=== PATIENT | male | born 1935 | race Caucasian/White ===

== ENCOUNTER 2017-05-17 11:04 | Emergency (ER) | payer MEDICARE, OTHER ==
[~2017-05-17] VITALS: Ht 170.2 cm; Wt 86.4 kg
[~2017-05-17 11:04] MED LIST: /WARF25TA OR; ACET65TA OR; ASPI325T; BENA40TA2 OR; BYSTOLIC OR; DILT180C7 OR; HYDROCHLOROTHIAZIDE 12.5 MG OR; LEVOTHYROXINE 0.05 MG OR; LUTEIN 20 MG OR; MULTIVIT OR; PERC5TAB8 OR; [UNRECOGNIZED DRUG - OTHER]; [UNRECOGNIZED DRUG - OTHER]
[2017-05-17] MEDS ORDERED: ASPIRIN 81 MG CHEW TABLET PO ONE (11:45)
[2017-05-17 12:19] LABS: ANION GAP 10 MEQ/L (8-16); BLOOD UREA NITROGEN 14 MG/DL (7-18); CALCIUM LEVEL 8.9 MG/DL (8.8-10.2); CARBON DIOXIDE LEVEL 27 MEQ/L (21-32); CHLORIDE LEVEL 107 MEQ/L (98-107); CREATININE FOR GFR 1.32 MG/DL (0.70-1.30); GLOMERULAR FILTRATION RATE 55.3 (>35); GLUCOSE, FASTING 123 MG/DL (83-110); POTASSIUM SERUM 4.2 MEQ/L (3.5-5.1); SODIUM LEVEL 144 MEQ/L (136-145)
[2017-05-17 12:23] LABS: BASO % 0.9 % (0.0-1.0); EOS # 0.1 K/mm3 (0.0-0.50); EOS % 1.9 % (0.0-3.0); LARGE UNSTAINED CELL # 0.2 K/mm3 (0.0-0.4); LYMPH # 1.5 K/mm3 (1.5-4.5); LYMPH % 24.8 % (24.0-44.0); MEAN CORPUSCULAR HEMOGLOBIN 30.5 pg (27.0-33.0); MEAN CORPUSCULAR HGB CONC 33.9 g/dl (32.0-36.5); MONO # 0.4 K/mm3 (0.0-0.8); NEUTROPHILS # 3.7 K/mm3 (1.8-7.7); NEUTROPHILS % 62.3 % (36.0-66.0); PLATELET COUNT, AUTOMATED 194 k/mm3 (150-450); RED CELL DISTRIBUTION WIDTH 13.1 % (11.5-14.5); WHITE BLOOD COUNT 5.9 K/mm3 (4.0-10.0)
--- NOTE | 2017-05-17 12:24 | REP ---
PORTABLE CHEST X-RAY: Sitting AP view. HISTORY: Chest pain. COMPARISON STUDY: January 26, 2017. FINDINGS: The lungs are symmetrically aerated and clear. Heart is not enlarged. EKG electrodes are seen. The aorta is tortuous and calcific. There is some linear fibrosis in the right base. IMPRESSION: No active disease. Signed by Jens Morales MD 05/17/2017 02:38 P
[2017-05-17 16:17] VITALS: BP 186/77
--- NOTE | 2017-05-18 08:11 | ECGEPIP ---
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
--- NOTE | 2017-05-18 08:15 | ECGEPIP ---
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
== END 2017-05-17 16:18 | disposition home or self-care (01) ==
LOC: M ED 11:04
DX: R07.89 Other chest pain (principal); I48.91 Unspecified atrial fibrillation; I10 Essential (primary) hypertension; E78.5 Hyperlipidemia, unspecified; J44.9 Chronic obstructive pulmonary disease, unspecified; Z87.891 Personal history of nicotine dependence; Z79.82 Long term (current) use of aspirin; Z79.899 Other long term (current) drug therapy; Z88.0 Allergy status to penicillin

== ENCOUNTER → 2019-02-14 | Outpatient (CLI) | payer MEDICARE, OTHER ==
[~2019-02-14] MED LIST changes: -/WARF25TA OR; +COUM1TAB18 OR
--- NOTE | 2019-02-14 15:53 | REP ---
CT chest without contrast: History: Chronic cough. Comparison chest CT study is from September 28, 2011. CT findings: Preliminary digital cigar wrapper tender automatic radiograph shows slight elevation of the right hemidiaphragm, unchanged. The aorta is tortuous. 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 This is an incidental finding which is usually asymptomatic, but can occasionally present with chronic cough, stridor, dyspnea, or recurrent infection. It is unchanged from the September 28, [address] study when it was thought to reflect pneumomediastinum. It measures 1.1 cm in greatest AP dimension. The trachea and bronchial tree are otherwise unremarkable. No mediastinal mass or adenopathy is observed. There is fairly prominent vascular calcification again noted, unchanged. No pleural or pericardial effusion is seen. There is linear fibrosis in the right middle lobe, which is slightly more prominent but not new when compared with the 2012 study. There is mild linear plate-like atelectasis in the right lower lobe. No infiltrate is seen. No pulmonary mass lesion or significant nodule is appreciated. No infiltrate is seen. There are small calcific gallstones in the dependent portion of the gallbladder. No adrenal lesion is seen. The visualized upper abdominal structures are otherwise unremarkable. There is a tiny cortical cyst in the right kidney peripherally. 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 Cholelithiasis. Otherwise no acute finding. Fairly prominent vascular calcification. Electronically Signed by Jens Morales MD 02/14/2019 04:05 P
== END ==
LOC: M RAD 14:53
PROVIDERS: ATTEND Family Medicine
DX: R05 Cough (principal); J39.8 Other specified diseases of upper respiratory tract; K80.00 Calculus of gallbladder with acute cholecystitis without obstruction; N28.1 Cyst of kidney, acquired; J84.10 Pulmonary fibrosis, unspecified; J98.11 Atelectasis

== ENCOUNTER → 2020-11-25 | Outpatient (CLI) | payer MEDICARE, OTHER ==
--- NOTE | 2020-11-25 15:30 | REPPI ---
INDICATION: R05 COUGH. COMPARISON: Comparison chest x-ray 29 July 2018. TECHNIQUE: Two views.. FINDINGS: The lungs are well inflated and free of infiltrate. The pleural angles are sharp. The heart size is normal. Pulmonary vasculature is not increased. No significant bony abnormality is seen. The thoracic aorta is tortuous as before and somewhat calcific. IMPRESSION: No active disease.. <Electronically signed by Luis Morales > 11/25/20 [id number]
== END ==
LOC: M PLAIMG 14:28
PROVIDERS: ATTEND Family Medicine
DX: R05 Cough (principal)

== ENCOUNTER → 2021-10-10 | Outpatient (CLI) | payer MEDICARE, OTHER | LOC: M WUC 13:51 | PROVIDERS: ATTEND Physician Assistant | DX: M25.511 Pain in right shoulder (principal) ==

== ENCOUNTER 2024-09-04 14:05 | Emergency (ER) | payer MEDICARE, OTHER ==
[~2024-09-04] VITALS: Ht 170.2 cm; Wt 72.6 kg
[2024-09-04 14:56] LABS: BASO # 0.1 10^3/uL (0.0-0.2); BASO % 0.9 % (0.0-1.0); EOS # 0.1 10^3/uL (0.0-0.5); EOS % 1.7 % (0.0-3.0); HEMATOCRIT 41.8 % (42.0-52.0); LYMPH # 1.9 10^3/uL (1.5-5.0); LYMPH % 27.1 % (24.0-44.0); MEAN CORPUSCULAR HEMOGLOBIN 30.1 pg (27.0-33.0); MEAN CORPUSCULAR HGB CONC 33.5 g/dl (32.0-36.5); MEAN CORPUSCULAR VOLUME 89.9 fl (80.0-96.0); MONO # 0.6 10^3/uL (0.0-0.8); MONO % 8.6 % (2.0-8.0); NEUTROPHILS # 4.3 10^3/uL (1.5-8.5); NEUTROPHILS % 61.6 % (36.0-66.0); PLATELET COUNT, AUTOMATED 191 10^3/uL (150-450); RED BLOOD COUNT 4.65 10^6/uL (4.30-6.10)
[2024-09-04 15:12] LABS: CALCIUM LEVEL 10.2 MG/DL (8.3-10.6); CREATININE FOR GFR 1.49 MG/DL (0.70-1.30); GLOMERULAR FILTRATION RATE 47.3 (>35); POTASSIUM SERUM 4.3 MMOL/L (3.5-5.1)
[2024-09-04] MEDS: NS 500 ML IV ONE (15:14)
[2024-09-04 15:36] LABS: INR 1.07; PARTIAL THROMBOPLASTIN TIME 36.2 SECONDS (24.8-34.2); PROTHROMBIN TIME 14.2 SECONDS (12.5-14.5)
[2024-09-04 15:49] LABS: MAGNESIUM LEVEL 1.8 MG/DL (1.8-2.4)
[2024-09-04 15:54] LABS: FREE T4 1.2 NG/DL (0.89-1.76); THYROID STIMULATING HORMONE 2.16 uIU/ML (0.55-4.78)
[2024-09-04 17:49] VITALS: BP 162/73; TEMP 97.3; O2SAT 94
== END 2024-09-04 18:21 | disposition home or self-care (01) ==
LOC: EDBD 14:05 → M ED 14:05
DX: E86.0 Dehydration (principal); M50.30 Other cervical disc degeneration, unspecified cervical region; I10 Essential (primary) hypertension; E78.5 Hyperlipidemia, unspecified; Z88.0 Allergy status to penicillin; Z79.01 Long term (current) use of anticoagulants; Z79.82 Long term (current) use of aspirin; Z79.899 Other long term (current) drug therapy; Z86.79 Personal history of other diseases of the circulatory system

== ENCOUNTER 2024-09-06 12:55 | Observation (INO) | payer MEDICARE, OTHER ==
[~2024-09-06] VITALS: Ht 170.2 cm; Wt 71.5 kg
[2024-09-06 13:48] LABS: BASO # 0.1 10^3/uL (0.0-0.2); BASO % 1.1 % (0.0-1.0); EOS # 0.2 10^3/uL (0.0-0.5); EOS % 3.7 % (0.0-3.0); HEMATOCRIT 43.3 % (42.0-52.0); HEMOGLOBIN 14.2 g/dl (13.5-17.5); LYMPH # 1.8 10^3/uL (1.5-5.0); MEAN CORPUSCULAR HEMOGLOBIN 29.6 pg (27.0-33.0); MEAN CORPUSCULAR HGB CONC 32.8 g/dl (32.0-36.5); MEAN CORPUSCULAR VOLUME 90.2 fl (80.0-96.0); MONO # 0.4 10^3/uL (0.0-0.8); MONO % 8.2 % (2.0-8.0); NEUTROPHILS # 2.8 10^3/uL (1.5-8.5); NEUTROPHILS % 52.8 % (36.0-66.0); PLATELET COUNT, AUTOMATED 175 10^3/uL (150-450); WHITE BLOOD COUNT 5.4 10^3/uL (4.0-10.0)
[2024-09-06 14:11] LABS: BLOOD UREA NITROGEN 32 MG/DL (9-23); CALCIUM LEVEL 10.6 MG/DL (8.3-10.6); CARBON DIOXIDE LEVEL 32 MMOL/L (20-31); CHLORIDE LEVEL 100 MMOL/L (98-107); CREATININE FOR GFR 1.38 MG/DL (0.70-1.30); GLOMERULAR FILTRATION RATE 51.6 (>35); GLUCOSE, FASTING 110 MG/DL (74-106); MAGNESIUM LEVEL 1.8 MG/DL (1.8-2.4); POTASSIUM SERUM 4.5 MMOL/L (3.5-5.1); SODIUM LEVEL 138 MMOL/L (136-145)
[2024-09-06 14:14] LABS: FREE T4 1.26 NG/DL (0.89-1.76); THYROID STIMULATING HORMONE 2.958 uIU/ML (0.55-4.78)
[2024-09-06] MEDS: NS 500 ML IV ONE (14:51)
[2024-09-06] MEDS: NS (Normal Saline) 0.9% 1,000 ML IV SCH (14:52)
[2024-09-06 15:16] LABS: PROCALCITONIN 0.17 ng/ml
[2024-09-06] MEDS ORDERED: CHLO125TA PO (16:14)
[2024-09-06] MEDS ORDERED: FAMO40TA3 PO (16:14)
[2024-09-06] MEDS ORDERED: ALBU2.5V10 INH (16:14)
[2024-09-06] MEDS ORDERED: AMLO2.5T3 PO (16:14)
[2024-09-06] MEDS ORDERED: ELIQ2.5T PO (16:14)
[2024-09-06] MEDS ORDERED: MAGO400T2 PO (16:14)
[2024-09-06] MEDS ORDERED: VITA-168 PO (16:14)
[2024-09-06] MEDS ORDERED: OCUV1CAP4 PO (16:14)
[2024-09-06] MEDS ORDERED: BENA-8 PO (16:14)
[2024-09-06] MEDS ORDERED: ALBU8.5H PO (16:14)
[2024-09-06] MEDS ORDERED: ASPI81TA26 PO (16:14)
[2024-09-06] MEDS ORDERED: SYNT50TA PO (16:14)
[2024-09-06] MEDS ORDERED: HOME MED LIST COMPLETE! XX SCH (16:15)
[2024-09-06] MEDS ORDERED: ACETAMINOPHEN 325 MG TAB PO PRN (17:05)
[2024-09-06] MEDS ORDERED: MAALOX 30 ML SUSP *UDC PO PRN (17:05)
[2024-09-06] MEDS ORDERED: MOM 30ML SUSPENSION UDC PO PRN (17:05)
[2024-09-06] MEDS ORDERED: ALBUTEROL 90 MCG/ACT 8GM HFA INHALER INH PRN (17:10)
[2024-09-06 17:35] LABS: C REACTIVE PROTEIN QUANTITATIV < 0.50 MG/DL (<1.0)
[2024-09-06 17:43] VITALS: BP 187/69; TEMP 97.3; O2SAT 93
[2024-09-06 19:28] VITALS: BP 188/74; TEMP 97.5; O2SAT 94
[2024-09-06] MEDS: APIXABAN 2.5 MG TAB (ELIQUIS) PO SCH (20:32)
[2024-09-06 21:23] VITALS: BP 150/60
[2024-09-06 21:27] VITALS: BP 166/65
[2024-09-06 21:30] VITALS: BP 131/58
[2024-09-07] VITALS (9 sets, daily range): BP systolic 131–182; BP diastolic 54–71; TEMP 97.2–97.9; O2SAT 90–95
[2024-09-07] MEDS: LEVOTHYROXINE 50MCG TABLET (0.05MG) PO SCH (06:01)
[2024-09-07 07:57] LABS: ALBUMIN 2.7 G/DL (3.2-5.2); BILIRUBIN,TOTAL 0.7 MG/DL (0.3-1.2); CALCIUM LEVEL 9.5 MG/DL (8.3-10.6); CREATININE FOR GFR 1.45 MG/DL (0.70-1.30); GLOMERULAR FILTRATION RATE 48.8 (>35); MAGNESIUM LEVEL 1.6 MG/DL (1.8-2.4); TOTAL PROTEIN 5.4 G/DL (5.7-8.2)
[2024-09-07] MEDS: ASPIRIN 81MG ENTERIC TABLET PO SCH (09:17)
[2024-09-07] MEDS: MAGNESIUM OXIDE 400MG TAB (MAG-OX) PO SCH ×2 (09:17→20:18)
[2024-09-07] MEDS: FAMOTIDINE 20 MG TAB PO SCH (09:20)
[2024-09-07] MEDS: ALBUTEROL SULFATE 2.5MG/0.5ML INH NEB SOLN INH PRN (23:50)
[2024-09-08] VITALS (8 sets, daily range): BP systolic 146–179; BP diastolic 56–65; TEMP 97.2–97.9; O2SAT 91–98
[2024-09-08 05:32] LABS: HEMATOCRIT 35.4 % (42.0-52.0); HEMOGLOBIN 11.3 g/dl (13.5-17.5); MEAN CORPUSCULAR HEMOGLOBIN 29.3 pg (27.0-33.0); MEAN CORPUSCULAR HGB CONC 31.9 g/dl (32.0-36.5); MEAN CORPUSCULAR VOLUME 91.7 fl (80.0-96.0); PLATELET COUNT, AUTOMATED 152 10^3/uL (150-450); RED BLOOD COUNT 3.86 10^6/uL (4.30-6.10); WHITE BLOOD COUNT 6.1 10^3/uL (4.0-10.0)
[2024-09-08 05:45] LABS: C REACTIVE PROTEIN QUANTITATIV 0.63 MG/DL (<1.0)
[2024-09-08 05:46] LABS: ALBUMIN 2.7 G/DL (3.2-5.2); BILIRUBIN,TOTAL 0.5 MG/DL (0.3-1.2); CALCIUM LEVEL 8.9 MG/DL (8.3-10.6); CREATININE FOR GFR 1.33 MG/DL (0.70-1.30); GLOMERULAR FILTRATION RATE 53.9 (>35); MAGNESIUM LEVEL 1.5 MG/DL (1.8-2.4); POTASSIUM SERUM 3.9 MMOL/L (3.5-5.1); TOTAL PROTEIN 5.2 G/DL (5.7-8.2)
[2024-09-08] MEDS: BENAZEPRIL 20 MG TAB PO SCH (08:44)
[2024-09-08] MEDS: MAG SULF 1GM/100ML (MAG RUN) 1 GM in IV 1 EA IV SCH (08:45)
[2024-09-08] MEDS: FUROSEMIDE 20MG/2ML VIAL IV ONE (12:50)
[2024-09-09] VITALS: BP 168/67; TEMP 97.5; O2SAT 95
[2024-09-09 04:10] VITALS: BP 163/68; TEMP 97.5; O2SAT 97
[2024-09-09 05:16] LABS: HEMATOCRIT 38.5 % (42.0-52.0); HEMOGLOBIN 12.7 g/dl (13.5-17.5); PLATELET COUNT, AUTOMATED 146 10^3/uL (150-450); RED BLOOD COUNT 4.23 10^6/uL (4.30-6.10); WHITE BLOOD COUNT 6.4 10^3/uL (4.0-10.0)
[2024-09-09 05:39] LABS: ALBUMIN 2.8 G/DL (3.2-5.2); C REACTIVE PROTEIN QUANTITATIV 3.54 MG/DL (<1.0); CALCIUM LEVEL 9.4 MG/DL (8.3-10.6); CREATININE FOR GFR 1.35 MG/DL (0.70-1.30); MAGNESIUM LEVEL 1.9 MG/DL (1.8-2.4); PHOSPHORUS LEVEL 3.4 MG/DL (2.4-5.1); POTASSIUM SERUM 4.2 MMOL/L (3.5-5.1)
[2024-09-09 08:00] VITALS: BP 148/65; TEMP 97.9; O2SAT 94
[2024-09-09 09:30] VITALS: BP_SYST 111; BP_SYST 144; BP_DIAS 58; BP_DIAS 66
[2024-09-10] MEDS ORDERED: B-12100021 PO (01:55)
== END 2024-09-09 11:50 | disposition home health service (06) ==
LOC: M ED 12:55 → M ED INP 12:56 → M MSPAV 17:50
PROVIDERS: ADMIT Student in an Organized Health Care Education/Training Program; ATTEND Student in an Organized Health Care Education/Training Program
DX: I95.1 Orthostatic hypotension (principal); R42 Dizziness and giddiness; I48.91 Unspecified atrial fibrillation; Z79.01 Long term (current) use of anticoagulants; Z79.82 Long term (current) use of aspirin; R93.49 Abnormal radiologic findings on diagnostic imaging of other urinary organs; Z86.73 Personal history of transient ischemic attack (TIA), and cerebral infarction without residual deficits; I12.9 Hypertensive chronic kidney disease with stage 1 through stage 4 chronic kidney disease, or unspecified chronic kidney disease; E03.9 Hypothyroidism, unspecified; K21.9 Gastro-esophageal reflux disease without esophagitis; N18.30 Chronic kidney disease, stage 3 unspecified; R53.1 Weakness; Z79.899 Other long term (current) drug therapy; Z88.0 Allergy status to penicillin
CPT/HCPCS: 36415; 71045; 71046; 80048; 80053; 80069; 83735; 84145; 84439; 84443; 85025; 85027; 86140; 93005; 93041; 93306; 94640; 94760; 96361; 96374; 96375; 97116; 97161; 97165; 97530; 99285; J1940; J3475

== ENCOUNTER 2024-09-09 21:31 | Observation (INO) | payer MEDICARE, OTHER ==
[~2024-09-09] VITALS: Ht 170.2 cm; Wt 71.1 kg
[~2024-09-09 21:31] MED LIST changes: +ALBU2.5V10 INH; +ALBU8.5H PO; +AMLO2.5T3 PO; +ASPI81TA26 PO; +BENA-8 PO; +CHLO125TA PO; +ELIQ2.5T PO; +FAMO40TA3 PO; +MAGO400T2 PO; +OCUV1CAP4 PO; +SYNT50TA PO; +VITA-168 PO
[2024-09-09 22:07] LABS: BASO # 0.1 10^3/uL (0.0-0.2); BASO % 0.9 % (0.0-1.0); EOS # 0.4 10^3/uL (0.0-0.5); EOS % 5.5 % (0.0-3.0); HEMOGLOBIN 13.8 g/dl (13.5-17.5); LYMPH # 2.1 10^3/uL (1.5-5.0); LYMPH % 30.8 % (24.0-44.0); MEAN CORPUSCULAR HEMOGLOBIN 30.1 pg (27.0-33.0); MEAN CORPUSCULAR HGB CONC 32.9 g/dl (32.0-36.5); MEAN CORPUSCULAR VOLUME 91.7 fl (80.0-96.0); MONO # 0.7 10^3/uL (0.0-0.8); MONO % 10.7 % (2.0-8.0); NEUTROPHILS # 3.6 10^3/uL (1.5-8.5); NEUTROPHILS % 51.8 % (36.0-66.0); PLATELET COUNT, AUTOMATED 171 10^3/uL (150-450); RED BLOOD COUNT 4.58 10^6/uL (4.30-6.10); WHITE BLOOD COUNT 6.9 10^3/uL (4.0-10.0)
[2024-09-09] MEDS ORDERED: ISOVUE-370 76% 100ML VIAL As Ordered ONE (22:18)
[2024-09-09 22:21] LABS: INR 0.94; PARTIAL THROMBOPLASTIN TIME 36.1 SECONDS (24.8-34.2); PROTHROMBIN TIME 12.8 SECONDS (12.5-14.5)
[2024-09-09 22:31] LABS: CALCIUM LEVEL 9.7 MG/DL (8.3-10.6); CK-MB VALUE MASS 2.4 NG/ML (<3.6); CREATININE FOR GFR 1.26 MG/DL (0.70-1.30); GLOMERULAR FILTRATION RATE 57.4 (>35); POTASSIUM SERUM 4.3 MMOL/L (3.5-5.1)
[2024-09-09 22:37] LABS: MB/CK RELATIVE INDEX 4.13 (< OR =4)
[2024-09-09] MEDS: amLODIPine 5 MG TAB PO ONE (23:06)
[2024-09-10 00:07] LABS: THYROID STIMULATING HORMONE 3.275 uIU/ML (0.55-4.78)
[2024-09-10] MEDS ORDERED: MAALOX 30 ML SUSP *UDC PO PRN (01:20)
[2024-09-10] MEDS ORDERED: MOM 30ML SUSPENSION UDC PO PRN (01:20)
[2024-09-10] MEDS ORDERED: ACETAMINOPHEN 325 MG TAB PO PRN (01:20)
[2024-09-10] MEDS ORDERED: B-12100021 PO (01:55)
[2024-09-10] MEDS ORDERED: HOME MED LIST COMPLETE! XX SCH (01:55)
[2024-09-10 02:00] VITALS: BP 184/78; TEMP 98.1; O2SAT 91
[2024-09-10] MEDS ORDERED: ACETAMINOPHEN 650MG SUPP PR PRN (02:05)
[2024-09-10] MEDS ORDERED: LACRILUBE (AKWA TEARS) OPHTH OINT 3.5GM OU PRN (02:05)
[2024-09-10] MEDS: D5W/LR 1,000 ML IV SCH (02:20)
[2024-09-10 03:18] VITALS: BP 163/58
[2024-09-10 04:00] VITALS: BP 162/58; TEMP 97.9; O2SAT 93
[2024-09-10] MEDS: LEVOTHYROXINE 50MCG TABLET (0.05MG) PO SCH (08:41)
[2024-09-10] MEDS: PANTOPRAZOLE 40MG VIAL IV SCH (08:41)
[2024-09-10] MEDS: ASPIRIN 81MG ENTERIC TABLET PO SCH (08:42)
[2024-09-10] MEDS: APIXABAN 2.5 MG TAB (ELIQUIS) PO SCH (08:42)
[2024-09-10] MEDS: DOCUSATE SODIUM 100MG CAPSULE PO SCH (08:42)
[2024-09-10] MEDS ORDERED: PANTOPRAZOLE 40MG VIAL IV SCH (09:00)
[2024-09-10] MEDS ORDERED: LACRILUBE (AKWA TEARS) OPHTH OINT 3.5GM OU SCH (09:00)
[2024-09-10] MEDS: FAMOTIDINE 20 MG TAB PO SCH (09:55)
[2024-09-10] MEDS: BENAZEPRIL 20 MG TAB PO SCH (09:56)
[2024-09-10 12:00] VITALS: BP 143/62; TEMP 97.7; O2SAT 91
[2024-09-10] MEDS: ALBUTEROL 90 MCG/ACT 8GM HFA INHALER INH PRN (19:37)
[2024-09-10 20:00] VITALS: BP 154/63; TEMP 97.9; O2SAT 91
[2024-09-11 04:00] VITALS: BP 129/51; TEMP 98.4; O2SAT 94
[2024-09-11 06:05] LABS: BASO # 0.1 10^3/uL (0.0-0.2); BASO % 1.1 % (0.0-1.0); EOS # 0.5 10^3/uL (0.0-0.5); EOS % 8.6 % (0.0-3.0); HEMATOCRIT 38.9 % (42.0-52.0); HEMOGLOBIN 12.4 g/dl (13.5-17.5); LYMPH # 1.4 10^3/uL (1.5-5.0); LYMPH % 26.3 % (24.0-44.0); MEAN CORPUSCULAR HEMOGLOBIN 29.8 pg (27.0-33.0); MEAN CORPUSCULAR HGB CONC 31.9 g/dl (32.0-36.5); MEAN CORPUSCULAR VOLUME 93.5 fl (80.0-96.0); MONO # 0.6 10^3/uL (0.0-0.8); MONO % 10.4 % (2.0-8.0); NEUTROPHILS # 2.9 10^3/uL (1.5-8.5); NEUTROPHILS % 53.2 % (36.0-66.0); PLATELET COUNT, AUTOMATED 162 10^3/uL (150-450); RED BLOOD COUNT 4.16 10^6/uL (4.30-6.10); WHITE BLOOD COUNT 5.4 10^3/uL (4.0-10.0)
[2024-09-11 06:29] LABS: ALBUMIN 2.8 G/DL (3.2-5.2); BILIRUBIN,TOTAL 0.6 MG/DL (0.3-1.2); CREATININE FOR GFR 1.41 MG/DL (0.70-1.30); GLOMERULAR FILTRATION RATE 50.4 (>35); MAGNESIUM LEVEL 1.7 MG/DL (1.8-2.4); POTASSIUM SERUM 4.2 MMOL/L (3.5-5.1); TOTAL PROTEIN 5.6 G/DL (5.7-8.2)
[2024-09-11 08:03] VITALS: BP 164/68
[2024-09-11 08:30] VITALS: O2SAT 73; O2SAT 82; O2SAT 93
[2024-09-11 08:55] VITALS: O2SAT 91
[2024-09-11] MEDS: MAGNESIUM OXIDE 400MG TAB (MAG-OX) PO SCH (09:04)
[2024-09-11 10:53] LABS: PROCALCITONIN 0.15 ng/ml
[2024-09-11 12:00] VITALS: BP 160/68; TEMP 97.3; O2SAT 92
== END 2024-09-11 14:30 | disposition home or self-care (01) ==
LOC: M ED 21:31 → M ED INP 21:32 → UNDOADMOB 09-10 01:16 → M ED INP 09-10 01:16 → INTOOBSV 09-10 01:16 → M MSPAV 09-10 02:00 → M ED INP 09-10 02:00 → UNDODISOB 09-11 14:30
PROVIDERS: ADMIT Student in an Organized Health Care Education/Training Program; ATTEND Student in an Organized Health Care Education/Training Program
DX: I95.1 Orthostatic hypotension (principal); R42 Dizziness and giddiness; I48.91 Unspecified atrial fibrillation; Z86.73 Personal history of transient ischemic attack (TIA), and cerebral infarction without residual deficits; I12.9 Hypertensive chronic kidney disease with stage 1 through stage 4 chronic kidney disease, or unspecified chronic kidney disease; E03.9 Hypothyroidism, unspecified; K21.9 Gastro-esophageal reflux disease without esophagitis; N18.30 Chronic kidney disease, stage 3 unspecified; Z79.01 Long term (current) use of anticoagulants; Z79.82 Long term (current) use of aspirin; Z88.0 Allergy status to penicillin
CPT/HCPCS: 36415; 70450; 70496; 70498; 70551; 71045; 71046; 80047; 80048; 80053; 82550; 82553; 83735; 84145; 84443; 84484; 85025; 85610; 85730; 87486; 87581; 87633; 87798; 93005; 93041; 94760; 96361; 96374; 97161; 97165; 97530; 99285; G0378; J2470; Q9967

== ENCOUNTER → 2024-09-11 | Outpatient (CLI) | payer MEDICARE, OTHER ==
[~2024-09-11] MED LIST changes: +B-12100021 PO
== END ==
LOC: M EKG 14:35
PROVIDERS: ATTEND Student in an Organized Health Care Education/Training Program
DX: R00.1 Bradycardia, unspecified (principal)

== ENCOUNTER → 2024-10-02 | Outpatient (REF) | payer MEDICARE, OTHER ==
[2024-10-02 11:43] LABS: APPEARANCE, URINE HAZY (CLEAR); BACTERIA, URINE AUTO NEGATIVE (NEGATIVE); BILIRUBIN, URINE AUTO NEGATIVE (NEGATIVE); BLOOD, URINE BLOOD NEGATIVE (NEGATIVE); COLOR, URINE YELLOW (YELLOW); GLUCOSE, URINE (UA) AUTO NEGATIVE (NEGATIVE); KETONE, URINE AUTO NEGATIVE (NEGATIVE); LEUKOCYTE ESTERASE, URINE AUTO NEGATIVE (NEGATIVE); MUCUS, URINE SMALL (NEGATIVE); NITRITE, URINE AUTO NEGATIVE (NEGATIVE); PROTEIN, URINE AUTO NEGATIVE (NEGATIVE); RBC, URINE AUTO 3 /HPF (0-3); SPECIFIC GRAVITY URINE AUTO 1.017 (1.002-1.035); SQUAMOUS EPITHELIAL CELL UR AU 0 /HPF (0-6); UROBILINOGEN, URINE AUTO 0.2 mg/dL (0.0-2.0); WBC, URINE AUTO 2 /HPF (0-3)
[2024-10-02 11:45] LABS: BASO # 0.1 10^3/uL (0.0-0.2); BASO % 1.2 % (0.0-1.0); EOS # 0.3 10^3/uL (0.0-0.5); EOS % 5.2 % (0.0-3.0); HEMATOCRIT 39.8 % (42.0-52.0); HEMOGLOBIN 12.8 g/dl (13.5-17.5); LYMPH # 1.5 10^3/uL (1.5-5.0); LYMPH % 26.5 % (24.0-44.0); MEAN CORPUSCULAR HEMOGLOBIN 29.2 pg (27.0-33.0); MEAN CORPUSCULAR HGB CONC 32.2 g/dl (32.0-36.5); MEAN CORPUSCULAR VOLUME 90.9 fl (80.0-96.0); MONO # 0.6 10^3/uL (0.0-0.8); MONO % 9.5 % (2.0-8.0); NEUTROPHILS # 3.3 10^3/uL (1.5-8.5); NEUTROPHILS % 57.4 % (36.0-66.0); PLATELET COUNT, AUTOMATED 197 10^3/uL (150-450); RED BLOOD COUNT 4.38 10^6/uL (4.30-6.10); WHITE BLOOD COUNT 5.8 10^3/uL (4.0-10.0)
[2024-10-02 12:15] LABS: ALBUMIN 3.3 G/DL (3.2-5.2); BILIRUBIN,TOTAL 0.6 MG/DL (0.3-1.2); CALCIUM LEVEL 9.4 MG/DL (8.3-10.6); CHOLESTEROL RISK RATIO 3.28 (<5); CREATININE FOR GFR 1.45 MG/DL (0.70-1.30); GLOMERULAR FILTRATION RATE 48.8 (>35); HDL CHOLESTEROL 65.1 MG/DL (>40); LDL CHOLESTEROL 129.1 MG/DL (<100); NON-HDL-C 148.9 MG/DL; POTASSIUM SERUM 4.2 MMOL/L (3.5-5.1); TOTAL PROTEIN 6.1 G/DL (5.7-8.2)
== END ==
LOC: M LAB REF 11:08
PROVIDERS: ATTEND Family Medicine
DX: E78.5 Hyperlipidemia, unspecified (principal); I12.9 Hypertensive chronic kidney disease with stage 1 through stage 4 chronic kidney disease, or unspecified chronic kidney disease; N18.32 Chronic kidney disease, stage 3b